=== PATIENT | female | born 1980 | race Two or more races ===

== ENCOUNTER 2017-04-29 09:29 | Emergency (ER) | payer MEDICAID ==
[~2017-04-29] VITALS: Ht 165.1 cm; Wt 68.0 kg
[2017-04-29 09:47] VITALS: BP 130/95
[2017-04-29] MEDS ORDERED: cefTRIAXone SOD 1,000 MG VL ONE (09:56)
[2017-04-29] MEDS ORDERED: cefTRIAXone SOD 1,000 MG VL IM ONE (10:00)
== END 2017-04-29 10:16 | disposition home or self-care (01) ==
LOC: ER 09:40
DX: L02.415 Cutaneous abscess of right lower limb (principal)
CPT/HCPCS: 10060; 96372; 99283; J0696

== ENCOUNTER 2019-03-29 10:16 | Emergency (ER) | payer MEDICAID ==
[~2019-03-29] VITALS: Ht 137.2 cm; Wt 51.7 kg
[2019-03-29 10:21] VITALS: BP 118/83
[2019-03-29] MEDS ORDERED: LIDOCAINE 1% HCL (LOCAL ANESTH.) INJ 20ML MDV IJ ONE (10:45)
[2019-03-29] MEDS ORDERED: IBUPROFEN 800 MG TAB PO ONE (11:15)
== END 2019-03-29 11:37 | disposition home or self-care (01) ==
LOC: ER 10:16
DX: L02.415 Cutaneous abscess of right lower limb (principal); R21 Rash and other nonspecific skin eruption
CPT/HCPCS: 10060; 73552; 99283; J2001

== ENCOUNTER 2019-03-31 10:27 | Emergency (ER) | payer MEDICAID ==
[~2019-03-31] VITALS: Ht 157.5 cm; Wt 50.8 kg
[2019-03-31 10:42] VITALS: BP 108/72
== END 2019-03-31 11:12 | disposition home or self-care (01) ==
LOC: ER 10:29
DX: Z48.01 Encounter for change or removal of surgical wound dressing (principal)